=== PATIENT | male | born 1960 | race Caucasian/White ===

== ENCOUNTER 2017-01-05 00:38 | Inpatient (IN) | payer MEDICAID, OTHER ==
[~2017-01-05] VITALS: Ht 188 cm; Wt 125.9 kg
[2017-01-05] MEDS ORDERED: HEPARIN DRIP/D5W 100UNITS/ML 250 ML IV SCH (00:41)
[2017-01-05] MEDS ORDERED: ONDANSETRON HCL 4 MG/2 ML VIAL IV ONE ×2 (00:45)
[2017-01-05] MEDS ORDERED: HEPARIN SODIUM (PORCINE) 5000 UNITS/ML 1ML VIAL IV ONE (00:45)
[2017-01-05] MEDS ORDERED: MORPHINE SULFATE 4 MG/ML SYRG IV ONE ×3 (00:45→00:56)
[2017-01-05] MEDS ORDERED: MORPHINE SULF INJ 2 MG/ML SYRINGE 1ML ONE ×2 (00:45→00:56)
[2017-01-05] MEDS ORDERED: ONDANSETRON HCL 4 MG/2 ML VIAL ONE (00:47)
[2017-01-05] MEDS ORDERED: HEPARIN SODIUM (PORCINE) 5000 UNITS/ML 1ML VIAL ONE (00:55)
[2017-01-05] MEDS ORDERED: ANGIOMAX 250 MG VIAL IV ONE (01:22)
[2017-01-05] MEDS ORDERED: SODIUM CHL 0.9% 50 ML ONE (01:22)
[2017-01-05] MEDS ORDERED: fentaNYL CITRATE 100 MCG/2 ML VL ONE (01:22)
[2017-01-05] MEDS ORDERED: MIDAZOLAM HCL 1MG/1ML-2 ML VIAL ONE (01:22)
[2017-01-05] MEDS ORDERED: IOHEXOL 350 MG/ML 100ML IJ ONE (01:23)
[2017-01-05] MEDS ORDERED: LIDOCAINE 2%HCL (LOCAL ANESTH.) INJ 20ML MDV ONE (01:23)
[2017-01-05] MEDS ORDERED: EPTIFIBATIDE INJ (2MG/ML) 10ML VIAL IV ONE (01:23)
[2017-01-05 01:33] LABS: Basophils # (auto) 0 uL; Basophils % (auto) 0.3 % (0.0-2.0); CONDITION Y; Eosinophils # (auto) 0.2 uL; Eosinophils % (auto) 2.2 % (0.0-7.0); Hematocrit 46.1 % (41.0-53.0); Hemoglobin 15.6 g/dL (13.5-17.5); Lymphocytes # (auto) 3.7 uL; Lymphocytes % (auto) 37.2 % (10.0-50.0); Mean Corpuscular Hemoglobin 29.4 pg (28.0-32.0); Mean Corpuscular Hgb Conc. 33.8 g/dL (32.0-36.0); Mean Corpuscular Volume 86.9 fL (80.0-100.0); Mean Platelet Volume 8.2 fL (7.4-10.4); Monocytes # (auto) 0.8 uL; Monocytes % (auto) 8.1 % (0.0-12.0); Neutrophils # (auto) 5.2 uL; Neutrophils % (auto) 52.2 % (37.0-80.0); Platelet Count (auto) 277 10^3/uL (140-450); Red Cell Distribution Width 15.5 % (11.6-16.0)
[2017-01-05 01:43] LABS: INR 0.98 (0.9-1.15); Partial Thromboplastin Time 24.5 sec (22.64-33.71); Prothrombin Time 10.7 sec (9.37-12.3)
[2017-01-05 01:51] LABS: Chloride 108 mmol/L (98-107); Potassium 4.3 mmol/L (3.5-5.1); Sodium 140 mmol/L (136-145)
[2017-01-05 01:57] LABS: Albumin 3.9 g/dL (3.4-5.0); Anion Gap 11 (5-15); Aspartate Aminotransferase 26 U/L (15-37); BUN/Creatinine Ratio 11.1; Blood Urea Nitrogen 17 mg/dL (7-18); Calcium 8.9 mg/dL (8.5-10.1); Carbon Dioxide 21 mmol/L (21-32); GFR African American 61 mL/min; GFR Non-African American 51 mL/min; Glucose 120 mg/dL (74-106); Magnesium 1.8 mg/dL (1.6-2.6)
[2017-01-05 02:02] LABS: Alkaline Phosphatase 78 U/L (45-117); Bilirubin, Total 0.7 mg/dL (0.2-1.0); Total Protein 7.6 g/dL (6.4-8.2)
[2017-01-05] MEDS ORDERED: PRASUGREL HCL 10 MG TAB ONE (02:02)
[2017-01-05 02:03] LABS: B-Type Natriuretic Peptide 29.5 pg/mL (0-100); Temperature: 22.4 C (20.0-25.0)
[2017-01-05] MEDS ORDERED: HYDROcodone-ACET 5/325MG TAB PO PRN (02:30)
[2017-01-05] MEDS ORDERED: MORPHINE SULFATE 4 MG/ML SYRG IV PRN (02:30)
[2017-01-05] MEDS ORDERED: SODIUM CHLORIDE 0.9% 1,000 ML IV ONE (02:30)
[2017-01-05] MEDS ORDERED: ACETAMINOPHEN 500 MG TAB PO PRN (02:30)
[2017-01-05] MEDS ORDERED: NITROGLYCERIN 0.4 MG SL TAB SL PRN (02:30)
[2017-01-05] MEDS ORDERED: ATOR20TA PO (02:37)
[2017-01-05] MEDS ORDERED: METO25TA5 PO (02:37)
[2017-01-05] MEDS ORDERED: ASPI-231 PO (02:37)
[2017-01-05] MEDS ORDERED: PRASUGREL HCL 10 MG TAB PO ONE ×2 (02:45→10:00)
[2017-01-05 03:00] VITALS: BP 127/77
[2017-01-05 07:30] VITALS: BP 124/60
[2017-01-05 09:00] VITALS: BP 124/60
[2017-01-05] MEDS ORDERED: ASPirin-EC 81 mg tab PO SCH (10:00)
[2017-01-05] MEDS ORDERED: ATORVASTATIN 20 MG TAB PO SCH (10:00)
[2017-01-05] MEDS ORDERED: METOPROLOL TARTRATE 25 MG TAB PO SCH (10:00)
[2017-01-05 13:35] VITALS: BP 100/65
[2017-01-05 14:53] VITALS: BP 100/65
== END 2017-01-05 15:30 | disposition home or self-care (01) | DRG 174 ==
LOC: ER 00:38 → EDBD 00:38 → EAST 00:39
PROVIDERS: ADMIT Emergency Medicine; ATTEND Internal Medicine
PROC: 027034Z Dilation of Coronary Artery, One Artery with Drug-eluting Intraluminal Device, Percutaneous Approach (ICD-10-PCS; principal; 2017-01-05)
PROC: 4A023N7 Measurement of Cardiac Sampling and Pressure, Left Heart, Percutaneous Approach (ICD-10-PCS; 2017-01-05)
DX: I21.4 Non-ST elevation (NSTEMI) myocardial infarction (principal); I10 Essential (primary) hypertension; E66.9 Obesity, unspecified; E78.5 Hyperlipidemia, unspecified; E78.00 Pure hypercholesterolemia, unspecified; F17.210 Nicotine dependence, cigarettes, uncomplicated; I25.10 Atherosclerotic heart disease of native coronary artery without angina pectoris; Z68.35 Body mass index [BMI] 35.0-35.9, adult; Z95.1 Presence of aortocoronary bypass graft; Z90.49 Acquired absence of other specified parts of digestive tract
CPT/HCPCS: 36415; 71010; 80053; 83735; 83880; 84484; 85025; 85610; 85730; 86850; 86900; 86901; 87081; 92928; 93005; 93458; 96361; 96365; 96375; 99152; C1874; J2250; J2405